=== PATIENT | female | born 1985 | race Caucasian/White ===

== ENCOUNTER → 2023-07-08 11:14 | Outpatient (REF) | payer OTHER, SELFPAY | LOC: REG 11:14 | PROVIDERS: ATTENDING PHYSICIAN Nurse Practitioner Family | DX: M79.675 Pain in left toe(s) (principal) | CPT/HCPCS: 73630 ==

== ENCOUNTER 2023-08-24 23:42 | Inpatient (IN) | payer OTHER, SELFPAY ==
[2023-08-24 17:16] VITALS: BMI 44.6
[2023-08-24 17:31] VITALS: BP 170/100
[2023-08-24 18:24] LABS: % Basophils 0.5 % (0-2); % Eosinophils 1.8 % (0-6); % Immature Granulocytes 0.3 % (0-0.5); % Lymphocytes 21.9 % (20.5-51.1); % Monocytes 6.8 % (1.7-9.3); % Neutrophils 68.7 % (42.2-75.2); Absolute Basophils 0.1 10^3/uL (0-0.2); Absolute Eosinophils 0.2 10^3/uL (0-0.7); Absolute Lymphocytes 2.3 10^3/uL (1.2-3.4); Absolute Monocytes 0.7 10^3/uL (0.1-0.6); Absolute Neutrophils 7.1 10^3/uL (1.4-6.5); Hematocrit 41.6 % (37.0-47.0); Hemoglobin 14.1 g/dL (12.0-16.0); Mean Corp Hgb Conc. 33.9 g/dL (33.0-37.0); Mean Corpuscular Hgb 27.2 pg (27.0-31.0); Mean Corpuscular Volume 80.3 fL (81.0-99.0); Mean Platelet Volume 9.1 fL (7.4-10.4); Nucleated Red Blood Cells % 0 %; Platelet Count 307 10^3/uL (130-400); Red Blood Cell Count 5.18 10^6/uL (4.20-5.40); Red Cell Dist. Width 13.7 % (11.5-14.5); White Blood Cell Count 10.4 10^3/uL (4.8-10.8)
[2023-08-24 18:35] LABS: HCG, Serum Qualitative Screen Negative
[2023-08-24 18:39] LABS: ALT (SGPT) 40 U/L (0-35); AST (SGOT) 35 U/L (14-36); Albumin 4.2 g/dl (3.5-5.0); Alkaline Phosphatase 106 U/L (38-126); Blood Urea Nitrogen 11 mg/dl (7-17); Calcium 9.5 mg/dl (8.4-10.2); Carbon Dioxide 26 mmol/L (22-30); Chloride 102 mmol/L (98-107); Glucose 91 mg/dl (70-99); Potassium 3.7 mmol/L (3.5-5.1); Sodium 138 mmol/L (135-145); Total Bilirubin 0.6 mg/dl (0.2-1.3); Total Protein 7.1 g/dl (6.3-8.2); eGFR > 60.00
[2023-08-24 19:41] VITALS: BP 150/85
[2023-08-24 20:00] VITALS: BP 146/73
--- NOTE | 2023-08-24 20:01 | ED.GENMED ---
History of Present Illness
General
Chief Complaint: Rectal Bleeding
Source: patient
Exam Limitations: none
Time Seen by Provider: 08/24/23 19:31
Nursing documentation reviewed up to this point in time: agreed with
Travel History
Have you had any contact with someone who has COVID-19?: No
Do you have any symptoms of coronavirus? Fever > 100 degrees, chills, cough, shortness of breath, sore throat, loss of taste or smell, muscle aches, or headache?: No
History of Present Illness
History of Present Illness:
Patient presents to ED secondary to greater than 20 episodes of bloody bowel movements since last night, associated with lower abdominal cramping sensation. Patient also reports nausea sensation without vomiting. Patient has had small meals today
without any vomiting episodes, but has been followed by multiple diarrhea episodes. Denies dizziness. Denies shortness of breath. Denies fever or chills. Denies recent illness. Denies recent change in medications or diet. Denies recent travel.
Patient does have history of IBS and states that she has been under heavy stress over the past 2 weeks, and is wondering whether or not it may have caused her IBS to flareup. There is family history of ulcerative colitis.
Past History
Past History
ED Past Medical History: Psychiatric (depr) and Other (PCOS, kidney stones)
ED Past Surgical History: Gynecological (Ovarian cyst removal, uterus polyp removal)
Social History
Tobacco: Non-smoker
Alcohol: None
Drug: None
Living: with family
Employment: Employed
Review of Systems
Review of Systems
Allergies reviewed?: Yes
All Other Systems: ROS reviewed and negative except as documented in HPI and ROS
Constitutional: Reports no symptoms; Denies fever or chills
Respiratory: Reports no symptoms
ABD/GI: Reports abdominal pain and nausea; Denies vomiting, diarrhea or bloody stools
Skin: Reports no symptoms
Neurological: Reports no symptoms; Denies dizzy or weakness
Phy Exam
Physical Exam
Physical Exam:
Physical Exam
General: mild distress, not acutely ill. afebrile
Head: nc/at. eomi
Neck: supple. normal range of motion.
Heart: s1/s2 regular rate and rhythm, no murmur. equal radial pulses.
Lungs: no acute respiratory distress. clear bilaterally
Abdomen: normal bowel sounds. not tender. no distention
Neuro: alert and oriented. no focal neurological deficits
Skin: no rash
Psychiatric: well kept. interactive and cooperative
Extremities: no edema. no calf tenderness.
Course
Orders/Labs/Results
Orders:
Orders
08/24/23 17:34
Test Result ONCE
08/24/23 18:18
Complete Blood Count/With Diff Urgent
Comprehensive Metabolic Panel Urgent
HCG, Serum Qualitative Screen Urgent
08/24/23 20:00
Stool Culture Urgent
DANETTE Source: Feces/Stool
Specimen Description:
0.9% Sodium Chloride 1000 ml [Nss] 1,000 ml IV BOLUS
08/24/23 20:06
CT Abd/pel W Iv And Oral Contr Urgent
Comment:
Reason For Exam: lower abdominal pain with bloody diarrhea
Iohexol [Omnipaque] See Protocol PO NOW STA
08/24/23 23:18
0.9% Sodium Chloride 500 ml [Nss] 500 ml IV BOLUS
Acetaminophen [Tylenol] 650 mg PO NOW STA
Ondansetron Injectable [Zofran] 4 mg IV NOW STA
08/24/23 23:29
Admit/Transfer Patient As Directed
Co-Sign Provider:
Level of Care: Inpatient admission
Assign to:: Medical/Surgical
Physician / Group: lexa self
Diagnosis: ulcreative colitis
Reason for Hospitalization: ulcerative colitis
Expected length of stay greater than two midnights?: Yes
ELOS- Estimated Length of Stay in days: 3
I certify the patient meets the requirements for IP care: Yes
08/24/23 23:30
Code Status As Directed
Resuscitation Status: Full Code
08/25/23 00:20
0.9% Sodium Chloride 1000 ml [Nss] 1,000 ml IV 80 mls/hr
Acetaminophen [Tylenol] 650 mg PO Q4HPRN PRN
Bisacodyl [Dulcolax] 10 mg RECTAL [id number] PRN
Docusate W/Senna [Senokot-S] 1 tablet PO BIDPRN PRN
Gabapentin [Neurontin] 300 mg PO DAILY PRN
Polyethylene Glycol Powder [Miralax] 17 grams PO DAILYPRN PRN
08/25/23 00:20
GASTROINTESTINAL CONSULT Routine
Consulting Provider: Emmanuel Euceda
Was physician already notified: Yes
Activity As Directed
Activity Level: As Tolerated
Pneumatic Compression Sleeves As Directed
Type: Knee high
Vital Signs As Directed
Frequency: Per unit guidelines
DX Deep Vein Thrombosis Video Routine
08/25/23 06:00
Complete Blood Count/No Diff IN AM
08/25/23 08:00
Escitalopram Oxalate [Lexapro] 20 mg PO DAILY
Famotidine [Pepcid] 20 mg PO DAILY
Gabapentin [Neurontin] 300 mg PO BID
Pseudoephedrine Extended Rel. [Sudafed 12 Hour (Extended Release)] 120 mg PO DAILY
08/26/23 06:00
Basic Metabolic Panel IN AM
Complete Blood Count/No Diff IN AM
08/27/23 06:00
Basic Metabolic Panel IN AM
Complete Blood Count/No Diff IN AM
08/28/23 06:00
Basic Metabolic Panel IN AM
Complete Blood Count/No Diff IN AM
08/29/23 06:00
Basic Metabolic Panel IN AM
Complete Blood Count/No Diff IN AM
Abnormal Lab Results
08/24/23
18:18
MCV 80.3 L fL
(81.0-99.0)
Absolute Neuts (auto) 7.1 H 10^3/uL
(1.4-6.5)
Absolute Monos (auto) 0.7 H 10^3/uL
(0.1-0.6)
ALT 40 H U/L
(0-35)
08/24/23 18:18
08/24/23 18:18
Vital Signs
Initial and Last Documented VS:
Initial Vital Signs
Temp Pulse Resp BP Pulse Ox
98.2 F 77 16 170/100 98
08/24/23 17:31 08/24/23 17:31 08/24/23 17:31 08/24/23 17:31 08/24/23 17:31
Last Documented Vital Signs
Temp Pulse Resp BP Pulse Ox
97.7 F 76 18 148/92 97
08/25/23 00:37 08/25/23 00:37 08/25/23 00:37 08/25/23 00:37 08/25/23 00:37
MDM/Problems Addressed
MDM/Problems Addressed:
Photos of BM visualized: bright red blood with small clots noted.
Pt with multiple episodes of bloody BM in ED during treatment.
H/H noted.
CT abd/pel report reviewed - awaiting to hear back from GI.
*Critical Care Note
Total Time (30-74mins, 75-104mins- exclusive of procedures): Not Applicable
ED Attending Note
-
Portions of this chart may have been created with voice recognition software.� Occasional wrong word or��sound alike� substitutions may have occurred due to the inherent limitations of voice recognition software.
Discharge Plan
Departure
Patient Disposition: Admit
Date of Disposition: 08/24/23
Time of Disposition: 23:27
Admit to: Med/Surg
Presentation/result/management discussed w/ accepting MD/DO: Hospitalist
Discharge Problem:
Colitis, Bloody diarrhea
Interventions
Interventions:
*Risk Screen - Suicide Last Done: 08/25/23 00:49
*General Assessment Last Done: 08/24/23 19:36
*Neglect/Abuse Screening Last Done: 08/24/23 19:36
ED- Fall Risk Assessment Last Done: 08/24/23 19:42
*ED COVID-19 Vaccine History Last Done: 08/24/23 17:31
*Nursing Disposition Last Done: 08/25/23 00:18
UG-Ghnyax-Luksfnqjre Assessment Last Done: 08/24/23 19:42
ED- Cardiac Assessment Last Done: 08/24/23 19:42
ED- Pulmonary Assessment Last Done: 08/24/23 19:42
Discharge Date and Time
Discharge Date/Time: 08/25/23 00:19
[2023-08-24] MEDS: OMNIPAQUE 50 ML PO (20:19)
[2023-08-24] MEDS: NSS 1000 IV (20:35)
[2023-08-24 21:00] VITALS: BP 117/91
[2023-08-24 22:00] VITALS: BP 129/81
[2023-08-24] MEDS: TYLENOL 650 MG PO (23:25)
[2023-08-24] MEDS: ZOFRAN 4 MG IV (23:25)
[2023-08-24] MEDS: NSS 500 IV (23:26)
--- NOTE | 2023-08-24 23:53 | HPS.HSE ---
Family Physician
-
Family Physician: TITA Correa
Chief Complaint
-
bloody diarrhea
History of Present Illness
38 y/o F hx of IBS, PCOS, presents to ER for 1 day history of bloody diarrhea. Patient reports symptoms began last evening. She has counted at least 20 separate episodes of blood BMs, associated with lower abdomen cramping. She reports + nausea, but
no vomiting. Today she has kept her meals small but still have several episodes of diarrhea. No other complaints. no recent med changes, sick contacts or travel. she reports increased level of stress last 2 weeks so thinks there may be a link there.
She does have a family history of UC (mother).
Medical History
Past Medical History
Past Medical History: Reports Other (Psychiatric (depr) and Other (PCOS, kidney stones))
Past Surgical History: Reports Other (Gynecological (Ovarian cyst removal, uterus polyp removal))
Social History
Tobacco: Non-smoker
Alcohol: None
Drug: None
Living: With Family
Employment: Employed
Family History
Family History: Other (Mother with UC)
Allergies / Home Medications
Allergies reflects when Allergies were last updated in [facility].
Home Medications with original date entered in [facility]
Allergy/Medication List:
Allergies
Allergy/AdvReac Type Severity Reaction Status Date / Time
levofloxacin [From Levaquin] Allergy Hives Verified 04/21/21 16:40
Sulfa (Sulfonamide Allergy Rash Verified 04/21/21 16:40
Antibiotics)
sulfamethoxazole Allergy Hives Verified 08/24/23 17:33
[From Bactrim]
trimethoprim [From Bactrim] Allergy Hives Verified 08/24/23 17:33
Home Medications
Medical Marijuana 5 mg PO HSPRN PRN sleep 08/24/23
cetirizine 5 mg-pseudoephedrine ER 120 mg tablet,extended release,12hr (Zyrtec-D) 1 tab PO DAILY 08/24/23
escitalopram oxalate 20 mg tablet 20 mg PO DAILY 08/24/23
famotidine 20 mg tablet 20 mg PO DAILY 08/24/23
gabapentin 300 mg capsule 300 mg PO BID 08/24/23
gabapentin 300 mg capsule 300 mg PO DAILY PRN nerve pain 08/24/23
ibuprofen 200 mg tablet (Advil) 600 mg PO BIDPRN PRN mild pain 08/24/23
Review of Systems
-
A 12 point ROS was completed and negative except as noted: Yes
Physical Exam
Vital Signs
Vital Signs
Temp Pulse Resp BP Pulse Ox
98.2 F 77 16 129/81 99
08/24/23 17:31 08/24/23 17:31 08/24/23 17:31 08/24/23 22:00 08/24/23 22:15
Physical Exam
General: No Apparent Distress
HEENT: NormoCephalic and Anicteric
Respiratory: No Wheezes
Cardiac: S1/S2 and Regular Rhythm
GI: Soft and Non Tender
Neuro: AO x 3
Hematologic/Lymphatic: No Lymphadenopathy
Psych: Calm
Laboratory Results
-
08/24/23 18:18
08/24/23 18:18
Laboratory Results
Total Bilirubin 0.6 mg/dl (0.2-1.3) 08/24/23 18:18
AST 35 U/L (14-36) 08/24/23 18:18
ALT 40 U/L (0-35) H 08/24/23 18:18
Alkaline Phosphatase 106 U/L (38-126) 08/24/23 18:18
Data Reviewed
-
CT Scan: Report Reviewed by me and Discussed with Patient
Lab Data: Labs Reviewed by me and Discussed with Patient
Impression/Plan
-
Assessment:
Bloody diarrhea
- CT: Acute uncomplicated colitis throughout the descending and proximal sigmoid colon, likely of infectious/inflammatory etiology.
- family history + for UC
- check ESR, CRP, fecal calprotectin
- stool studies
- NPO/IVF
- GI evaluation to consider steroids, sigmoidoscopy
- will start Zosyn empirically
DVT ppx: SCDs
Code: Full
[2023-08-24 23:54] VITALS: BP 113/46
--- NOTE | 2023-08-25 00:25 | PTCARENOTE ---
Pt admitted to room 2127 from ED, aaox3, no c/o pain. discomfort , n/v noted. IVF's infusing at 80ml/hr, no loose stools noted.
[2023-08-25 00:37] VITALS: BP 148/92; BMI 44.1
[2023-08-25] MEDS: NSS 1000 IV ×2 (00:42→12:30)
[2023-08-25] MEDS: AMBIEN 5 MG PO ×2 (01:00→21:38)
[2023-08-25] MEDS: ZOSYN 50 IV ×4 (01:21→20:32)
[2023-08-25 06:37] LABS: Hemoglobin 12.2 g/dL (12.0-16.0); Mean Corpuscular Hgb 27.1 pg (27.0-31.0); Mean Corpuscular Volume 82.2 fL (81.0-99.0); Mean Platelet Volume 9.6 fL (7.4-10.4); Platelet Count 248 10^3/uL (130-400); Red Cell Dist. Width 13.7 % (11.5-14.5); White Blood Cell Count 8.4 10^3/uL (4.8-10.8)
--- NOTE | 2023-08-25 06:50 | CON.GI ---
Addendum entered and electronically signed by Roslyn Daniels DO 08/25/23 11:23:
I saw and examined the patient.
The WAREHOUSE PULLER or PA's note was reviewed and I agree with the note.
Comment: Shellie is a 38-year-old female with past medical history of PCOS, IBS, nephrolithiasis, GERD, history of ovarian cyst, history of uterine polyp status post removal admitted with complaints of abdominal pain and bloody diarrhea, sudden onset
in nature, describes the pain as crampy. CAT scan on admission shows evidence of colitis in the descending and sigmoid colon. She is currently tolerating a liquid diet, has not had any bowel movements overnight, last bloody BM was yesterday around
11:00. Known family history of ulcerative colitis in her mother. She reports a normal colonoscopy at [facility] about 5 years ago, which was after having Campylobacter infection as well as recurrent IBS flares. I do not have a cough of
colonoscopy report, is unclear whether the terminal ileum was assessed or colonic biopsies were obtained to rule out microscopic or lymphocytic colitis. Her CRP is elevated otherwise labs are within normal limits. No stool studies obtained. She
was started on antibiotics for presumed infectious colitis.
At this time, the differential for her diarrhea remains broad, infectious versus inflammatory versus ischemic. If patient tolerates diet, okay for discharge from a GI perspective and will arrange for outpatient follow-up for flex sig vs.
colonoscopy. She follows with Dr. Joshi.
Original Note:
Consultation
-
Date/Time Consultation Requested: 08/25/2319
Date/Time Consultation Performed: 08/25/23929
Requesting Provider: TITA Barrera
Performing Provider: TITA Vazquez
Reason for Consultation: blood diarrhea
Medical History
Chief Complaint / HPI
Chief Complaint: crampy abdominal pain with blood diarrhea
History of Present Illness:
Pt is a 38yo with hx depression, PCOS, IBS, renal stones, GERD, ovarian cyst and uterine polyp removal and mother with history of ulcerative colitis presents to ER with lower crampy abdominal pain and blood diarrhea. On admission labs stable
with CT noted acute uncomplicated colitis in descending ans sigmoid.
Pt states she has hx IBS with flares every several months and prior campylobacter about 5-6 years ago with normal colonoscopy after infection completed at [facility]. She now admits to sudden onset of crampy abdominal pain with initially brown then
bloody frequent stools. After admission stools frequency has decreased. No stools studies have been sent. Pt does also admit to stress prior to admission. She denies any recent travel, abx, tainted foods or sick contacts.
Pt admits to nausea with symptoms but chronic GERD on Famotidine but recent flare with course of Omprazole. denies dysphagia, constipation or black stools.
Past Medical History
Past Medical History: GERD, Psychiatric (depression) and Other (kidney stones, PCOS, IBS, campylobacter infection 5-6 years ago)
Past Surgical History: Other (ovarian cyst removal, uterus polyp removal)
Social History
Tobacco: Non-Smoker
Alcohol: Occasional (1-2 drinks per month)
Drug: Marijuana (occasional use )
Living: Alone
Employment: Employed
Family History
Family History: Other (mother with ulcerative colitis, father with diverticulitis )
Allergies / Home Medications
Allergy/AdvReac Type Severity Reaction Status Date / Time
levofloxacin [From Levaquin] Allergy Hives Verified 04/21/21 16:40
Sulfa (Sulfonamide Allergy Rash Verified 04/21/21 16:40
Antibiotics)
sulfamethoxazole Allergy Hives Verified 08/24/23 17:33
[From Bactrim]
trimethoprim [From Bactrim] Allergy Hives Verified 08/24/23 17:33
�Medication �Instructions �Recorded
Medical Marijuana 5 mg PO HSPRN PRN sleep 08/24/23
cetirizine 5 mg-pseudoephedrine ER 1 tab PO DAILY 08/24/23
120 mg tablet,extended
release,12hr (Zyrtec-D)
escitalopram oxalate 20 mg tablet 20 mg PO DAILY 08/24/23
famotidine 20 mg tablet 20 mg PO DAILY 08/24/23
gabapentin 300 mg capsule 300 mg PO BID 08/24/23
gabapentin 300 mg capsule 300 mg PO DAILY PRN nerve pain 08/24/23
ibuprofen 200 mg tablet (Advil) 600 mg PO BIDPRN PRN mild pain 08/24/23
Review of Systems
-
History Source: Patient
Constitutional: Reports No Symptoms
EENT: Reports No Symptoms
Respiratory: Reports No Symptoms
Cardiac: Reports No Symptoms
Abdomen/GI: Reports Abdominal Pain, Nausea, Diarrhea and Bloody Stools
: Reports No Symptoms
Musculoskeletal: Reports Other (recent toe issue )
Skin: Reports No Symptoms
Neurological: Reports Weakness
Endocrine: Reports No Symptoms
Hematologic/Lymphatic: Reports Bleeding
Vital Signs
Temp Pulse Resp BP Pulse Ox
97.7 F 76 18 148/92 97
08/25/23 00:37 08/25/23 00:37 08/25/23 00:37 08/25/23 00:37 08/25/23 00:37
Physical Exam
Exam
General: Well Developed, Well Nourished and No Apparent Distress
HEENT: Normocephalic and Anicteric
Respiratory: Clear
Cardiac: Regular Rhythm
GI: Soft, Non Tender and Non Distended
Musculoskeletal: No Clubbing and No Cyanosis
Skin: Warm and Dry
Neuro: Awake, Alert and AO x 3
Psych: Calm
Results
WBC 8.4 10^3/uL (4.8-10.8) 08/25/23 05:37
Hgb 12.2 g/dL (12.0-16.0) 08/25/23 05:37
Hct 37.0 % (37.0-47.0) 08/25/23 05:37
MCV 82.2 fL (81.0-99.0) 08/25/23 05:37
Plt Count 248 10^3/uL (130-400) 08/25/23 05:37
Absolute Neuts (auto) 7.1 10^3/uL (1.4-6.5) H 08/24/23 18:18
Sodium 138 mmol/L (135-145) 08/24/23 18:18
Potassium 3.7 mmol/L (3.5-5.1) 08/24/23 18:18
Chloride 102 mmol/L (98-107) 08/24/23 18:18
Carbon Dioxide 26 mmol/L (22-30) 08/24/23 18:18
BUN 11 mg/dl (7-17) 08/24/23 18:18
Creatinine 0.6 mg/dL (0.6-1.0) 08/24/23 18:18
Calcium 9.5 mg/dl (8.4-10.2) 08/24/23 18:18
Total Bilirubin 0.6 mg/dl (0.2-1.3) 08/24/23 18:18
AST 35 U/L (14-36) 08/24/23 18:18
ALT 40 U/L (0-35) H 08/24/23 18:18
Alkaline Phosphatase 106 U/L (38-126) 08/24/23 18:18
Diagnostic Image Results:
08/23 CT A/p with IV and oral -1. Acute uncomplicated colitis throughout the descending and proximal sigmoid colon, likely of infectious/inflammatory etiology.
Prior GI Procedures:
EGD: 2019 [facility]- - Normal esophagus.
- Z-line regular, 35 cm from the incisors.
- Mild antral gastritis. Biopsied.
- Normal examined duodenum. Biopsied.
bx neg
Colonoscopy: 5-6 years ago [facility] recalls as normal
Assessment / Plan
-
Pt is a 38yo with hx depression, PCOS, IBS, renal stones, GERD, ovarian cyst and uterine polyp removal and mother with history of ulcerative colitis presents to ER with lower crampy abdominal pain and blood diarrhea. On admission labs stable
with CT noted acute uncomplicated colitis in descending ans sigmoid.
Pt states she has hx IBS with flares every several months and prior Campylobacter about 5-6 years ago with normal colonoscopy after infection completed at [facility]. She now admits to sudden onset of crampy abdominal pain with initially brown then
bloody frequent stools. After admission stools frequency has decreased. No stools studies have been sent. Pt does also admit to stress prior to admission. She denies any recent travel, abx, tainted foods or sick contacts. CRP 47.5, ESR 16.
-colitis with blood diarrhea on admission
-hx prior Campylobacter infection 5-6 years with normal colonoscopy after infection
-family hx ulcerative colitis
-hx IBS
-GERD
-increased stress
other med problems:
--PCOS
-ovarian cyst
-uterine polyp
-renal stones
PLAN:
Etiology of symptoms related to colitis -infectious with sudden onset vs less likely but in differential IBD, ischemic colitis
pt already with improvement
await stool studies to be sent
remains on abx
clear diet advance as tolerated to low residue diet
cont famotidine with hx GERD
message sent to office for GI follow up 4-6 weeks if not improving consider OP colon vs flex
-
-
Thank you for consultation and allowing me to participate in the patient's care. Please call the cardiology clinical consultant GI physician during the after hours with any questions or concerns.
[2023-08-25 07:06] LABS: ALT (SGPT) 50 U/L (0-35); AST (SGOT) 46 U/L (14-36); Albumin 3.3 g/dl (3.5-5.0); Alkaline Phosphatase 86 U/L (38-126); Blood Urea Nitrogen 7 mg/dl (7-17); Calcium 8.8 mg/dl (8.4-10.2); Carbon Dioxide 24 mmol/L (22-30); Chloride 106 mmol/L (98-107); Direct Bilirubin 0.3 mg/dl (0.0-0.4); Estimated Creatinine Clearance > 125 ml/min; Glucose 93 mg/dl (70-99); Potassium 3.7 mmol/L (3.5-5.1); Sodium 138 mmol/L (135-145); Total Bilirubin 0.6 mg/dl (0.2-1.3); Total Protein 5.7 g/dl (6.3-8.2); eGFR > 60.00
[2023-08-25 07:22] VITALS: BP 125/60
[2023-08-25 07:48] LABS: Erythrocyte Sed Rate 16 mm/hour (0-20)
[2023-08-25] MEDS: NEURONTIN 300 MG PO ×2 (08:48→20:32)
[2023-08-25] MEDS: PEPCID 20 MG PO (08:49)
[2023-08-25] MEDS: LEXAPRO 20 MG PO (08:49)
[2023-08-25] MEDS: TYLENOL 650 MG PO (08:50)
[2023-08-25] MEDS: SUDAFED 12 HOUR (EXTENDED RELEASE) 120 MG PO (08:52)
[2023-08-25] MEDS: ZYRTEC PO (09:01)
[2023-08-25 09:03] VITALS: BMI 44.1
--- NOTE | 2023-08-25 09:52 | W.PN.HOSP.TC ---
Today's Communication/Plan
-
see plan
F/U further GI recs
Assessment / Plan
Assessment / Plan
38 y/o F hx of IBS, PCOS, presents to ER for 1 day history of bloody diarrhea that beginning evening prior. Family hx UC.
CT A/P
IMPRESSION:
1. Acute uncomplicated colitis throughout the descending and proximal sigmoid colon, likely of infectious/inflammatory etiology.
Bloody diarrhea
- CT: Acute uncomplicated colitis throughout the descending and proximal sigmoid colon, likely of infectious/inflammatory etiology.
- family history + for UC
- check ESR, CRP, fecal calprotectin
- stool studies, not yet collected given no loose stools overnight
-IVF
-IV Zosyn
-advance to clears
DVT ppx: SCDs
Code: Full
Anticipated Discharge: 24 - 48 hours
Subjective/Interval History
-
Date of Service: August 25, 2023
no significant loose stools overnight
no fevers/chills
abdominal cramping pre loose stools, no pain now
Objective Data
-
Labs:
Laboratory Results
08/25/23
05:37
WBC 8.4
Hgb 12.2
Hct 37.0
Plt Count 248
Sodium 138
Potassium 3.7
Chloride 106
Carbon Dioxide 24
BUN 7
Creatinine 0.6
Glucose 93
Calcium 8.8
Total Bilirubin 0.6
AST 46 H
ALT 50 H
Alkaline Phosphatase 86
Vital Signs:
Vital Signs
Temp Pulse Resp BP Pulse Ox
98 F 77 20 125/60 98
08/25/23 07:22 08/25/23 07:22 08/25/23 07:22 08/25/23 07:22 08/25/23 07:22
I&O
08/24/23 08/25/23 08/26/23
06:59 06:59 06:59
Intake Total 610 / 610
Balance 610 / 610
Review of Systems
-
History Source: Patient
All other systems: Reviewed and negative
Physical Exam
-
General: No Apparent Distress
HEENT: PERRLA
Respiratory: Clear to Auscultation; Negative Wheezes
Cardiac: Regular Rhythm and S1/S2
GI: Soft and Nontender
Skin: Warm and Dry; Negative Rash
Neuro: AO x 3
Psych: Calm
Data Reviewed
-
Diagnostic Radiology: Report Reviewed by me
Labs: Labs Reviewed by me
[2023-08-25] MEDS: ZOFRAN 4 MG IV (14:24)
[2023-08-25 15:20] VITALS: BP 132/79
--- NOTE | 2023-08-25 16:42 | CM ---
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 Pharmacy is
[facility] on [address] in [place] and PCP is Dr. Jarrett Griffith at [facility]. Anticipate no needs at discharge.
[2023-08-25 23:27] VITALS: BP 120/74
[2023-08-26] MEDS: ZOSYN 50 IV ×2 (01:00→08:02)
[2023-08-26 06:00] LABS: Hematocrit 36.5 % (37.0-47.0); Hemoglobin 12.3 g/dL (12.0-16.0); Mean Corp Hgb Conc. 33.7 g/dL (33.0-37.0); Mean Corpuscular Hgb 27.3 pg (27.0-31.0); Mean Corpuscular Volume 80.9 fL (81.0-99.0); Mean Platelet Volume 9.6 fL (7.4-10.4); Platelet Count 260 10^3/uL (130-400); Red Blood Cell Count 4.51 10^6/uL (4.20-5.40); Red Cell Dist. Width 13.7 % (11.5-14.5); White Blood Cell Count 8.4 10^3/uL (4.8-10.8)
[2023-08-26 06:28] LABS: Blood Urea Nitrogen 8 mg/dl (7-17); Calcium 8.8 mg/dl (8.4-10.2); Carbon Dioxide 25 mmol/L (22-30); Chloride 105 mmol/L (98-107); Estimated Creatinine Clearance 124 ml/min; Glucose 95 mg/dl (70-99); Potassium 4.1 mmol/L (3.5-5.1); Sodium 137 mmol/L (135-145); eGFR > 60.00
[2023-08-26 07:10] VITALS: BP 115/69
[2023-08-26] MEDS: ZYRTEC 5 MG PO (08:00)
[2023-08-26] MEDS: PEPCID 20 MG PO (08:01)
[2023-08-26] MEDS: SUDAFED 12 HOUR (EXTENDED RELEASE) 120 MG PO (08:01)
[2023-08-26] MEDS: NEURONTIN 300 MG PO (08:01)
[2023-08-26] MEDS: LEXAPRO 20 MG PO (08:01)
--- NOTE | 2023-08-26 08:45 | PN.CDI ---
CDI
- -
CDI:
Physician Documentation Request
Admit Date: 08/24/23 23:42
Dear Doctor Octavia,
Patient admitted for colitis.
Clinical Indicators:
Height: 5' 2'
Weight:240 lbs
BMI:44.1
If possible, please provide an associated diagnosis related to the abnormal BMI, such as:
Obese
Overweight
Abnormal BMI is not significant
Other
BMI > or = to 40
Overweight
Obesity:
Due to excess calories
Drug induced
Due to other cause
Severe or morbid obesity:
With alveolar hypoventilation (Obesity hypoventilation syndrome)
Without alveolar hypoventilation
Use of terms such as suspected, likely, concern for, or probable (associated with a specific diagnosis that is being evaluated, monitored, or treated as if it exists) are acceptable and can be coded in the inpatient setting, when documented at the
time of discharge.
Thank you,
Yuko Horvath RN, BSN
CDI Specialist
Available via [place] text
Please use your independent medical judgment in providing your response.
--- NOTE | 2023-08-26 09:19 | W.PN.HOSP.TC ---
Addendum entered and electronically signed by Nancie Dudley MD 08/26/23 09:29:
obesity due to excess calories
-encourage weight loss
Original Note:
Today's Communication/Plan
-
Ok for DC today
Assessment / Plan
Assessment / Plan
38 y/o F hx of IBS, PCOS, presents to ER for 1 day history of bloody diarrhea that beginning evening prior. Family hx UC.
CT A/P
IMPRESSION:
1. Acute uncomplicated colitis throughout the descending and proximal sigmoid colon, likely of infectious/inflammatory etiology.
Bloody diarrhea
- CT: Acute uncomplicated colitis throughout the descending and proximal sigmoid colon, likely of infectious/inflammatory etiology.
- family history + for UC
- C. Diff negative; protozoa/Giardia neg; awaiting final stool culture
- with significant improvement in 24 hours, presentation seems infectious
- transition to oral antibiotics and DC on 4 more days
DVT ppx: SCDs
Code: Full
Anticipated Discharge: Today
Subjective/Interval History
-
Date of Service: August 26, 2023
some diarrhea last night after eating, non-bloody
overall frequency significantly decreased
able to tolerate regular diet
wants to go home
Objective Data
-
Labs:
Laboratory Results
08/26/23
05:15
WBC 8.4
Hgb 12.3
Hct 36.5 L
Plt Count 260
Sodium 137
Potassium 4.1
Chloride 105
Carbon Dioxide 25
BUN 8
Creatinine 0.7
Glucose 95
Calcium 8.8
Vital Signs:
Vital Signs
Temp Pulse Resp BP Pulse Ox
97.9 F 67 16 115/69 99
08/26/23 07:10 08/26/23 07:10 08/26/23 07:10 08/26/23 07:10 08/26/23 07:10
I&O
08/25/23 08/26/23 08/27/23
06:59 06:59 06:59
Intake Total 610 / 610 2290 / 2290
Balance 610 / 610 2290 / 2290
Review of Systems
-
History Source: Patient
All other systems: Reviewed and negative
Physical Exam
-
General: No Apparent Distress
HEENT: PERRLA
Respiratory: Clear to Auscultation; Negative Wheezes
Cardiac: Regular Rhythm and S1/S2
GI: Soft and Nontender
Skin: Warm and Dry; Negative Rash
Neuro: AO x 3
Psych: Calm
Data Reviewed
-
Diagnostic Radiology: Report Reviewed by me
Labs: Labs Reviewed by me
--- NOTE | 2023-08-26 09:28 | W.DS.TRANS ---
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
-
Discharge Instructions:
Discharge Diagnosis/Procedures infectious colitis
Diet Low Residue
Additional Diets Low Residue x 1 more week
Activity As tolerated
Driving Restrictions As prior to admission
Bathing Restrictions None
Instructions:
Stand-Alone Forms:
Changes to Home Medications: Yes
Discharge Medications:
DC Medications w/original date entered in [employer]
Medical Marijuana 5 mg PO HSPRN PRN sleep 08/24/23
cetirizine 5 mg-pseudoephedrine ER 120 mg tablet,extended release,12hr (Zyrtec-D) 1 tab PO DAILY Allergies 08/24/23
escitalopram oxalate 20 mg tablet 20 mg PO DAILY Depression 08/24/23
famotidine 20 mg tablet 20 mg PO DAILY Gastrointestinal Issue 08/24/23
gabapentin 300 mg capsule 300 mg PO BID Neurological Condition 08/24/23
gabapentin 300 mg capsule 300 mg PO DAILY PRN nerve pain 08/24/23
ibuprofen 200 mg tablet (Advil) 600 mg PO BIDPRN PRN mild pain 08/24/23
amoxicillin 875 mg-potassium clavulanate 125 mg tablet 1 tab PO BID #8 tabs 08/26/23
Home Medication Changes
addition of Augmentin
Pending Results: Yes
Additional Pending Results:
final stool culture
--- NOTE | 2023-08-26 10:52 | CM ---
Patient has been medically cleared for discharge to home with no additional skilled services. Patient has arranged for transport home.
--- NOTE | 2023-08-26 12:59 | W.DCSUMMARY ---
Discharge Summary
Discharge Data
Date of Admission: 08/24/23
Date of Discharge: 08/26/23
-
Pending Results: No
Hospital Course
Discharging Physician : Dr. Nancie Dudley
Disposition : Home
Primary care physician : Dr. Daren Tabares
Principal Discharge diagnosis : Infectious Colitis
Hospital Course :
Ms. Shellie Cuevas is a 38 yo woman with family hx UC presents to the ER with one day frequent bloody diarrhea. Triage vitals significant for hypertension. Labs with Hg 14.1. CT with acute uncomplicated colitis throughout descending and proximal
sigmoid colon. Patient was admitted to medicine with GI consulting. She was started on IV antibiotics. Over the next 24 hours symptoms significantly improved with less frequent diarrhea, no bleeding. C. Diff negative; protozoa/Giardia neg;
awaiting final stool culture. Patient able to advance diet and tolerate LRD prior to discharge. She is discharged on 4 more days antibiotics and will follow up outpatient with her PCP and GI where flex/sig versus colonoscopy will be discussed.
Time spent on discharge was 31 minutes.
Important imaging findings :
CT A/P
IMPRESSION:
1. Acute uncomplicated colitis throughout the descending and proximal sigmoid colon, likely of infectious/inflammatory etiology.
Procedure findings :
Discharge Plan
-
Patient Disposition: Home (Routine Discharge)
Discharge Diagnosis/Procedures: infectious colitis
Diet: Low Residue
Additional Diets: Low Residue x 1 more week
Activity: As tolerated
Driving Restrictions: As prior to admission
Bathing Restrictions: None
Referrals:
Emmanuel Euceda MD [Active] - in two to three weeks (scheduling for flex sig vs. colonoscopy)
Daren Tabares CRNP [Family Provider] - in less than 1 week
Prescriptions:
New
amoxicillin-pot clavulanate 875-125 mg Tablet
1 tab PO BID Qty: 8 0RF
Continued
cetirizine-pseudoephedrine [Zyrtec-D] 5-120 mg Tablet Extended Release 12 Hr
1 tab PO DAILY
famotidine 20 mg Tablet
20 mg PO DAILY
ibuprofen [Advil] 200 mg Tablet
600 mg PO BIDPRN PRN (Reason: mild pain)
gabapentin 300 mg Capsule
300 mg PO BID
gabapentin 300 mg Capsule
300 mg PO DAILY PRN (Reason: nerve pain)
escitalopram oxalate 20 mg Tablet
20 mg PO DAILY
Medical Marijuana 10 mg
5 mg PO HSPRN PRN (Reason: sleep)
Patient Comments:
08/24/2023, pt. uses medical marijuana gummies; each gummy is 10 mg and pt. takes 0.5 gummy HSPRN for sleep.
Discharge Orders:
Discharge Patient (As Directed); Ordered 08/26/23
Ordered By: Nancie Dudley
Discharge Date and Time
Discharge Date/Time: 08/26/23 11:23
Print Language: YORUBA
[2023-08-29 16:35] LABS: Calprotectin, Fecal 410 ug/g (<=49)
== END 2023-08-26 11:23 | disposition home or self-care (01) | DRG 392 ==
LOC: 2 NORTH 23:42
PROVIDERS: Emergency Medicine; Registered Nurse; ADMITTING PHYSICIAN Internal Medicine; ATTENDING PHYSICIAN Student in an Organized Health Care Education/Training Program; EMERGENCY PHYSICIAN Emergency Medicine; FAMILY PHYSICIAN Nurse Practitioner Family; OTHER PHYSICIAN Internal Medicine
PROC: 5A09357 Assistance with Respiratory Ventilation, Less than 24 Consecutive Hours, Continuous Positive Airway Pressure (ICD-10-PCS; 2023-08-25)
DX: A09 Infectious gastroenteritis and colitis, unspecified (principal); K62.5 Hemorrhage of anus and rectum; Z68.41 Body mass index [BMI] 40.0-44.9, adult; E28.2 Polycystic ovarian syndrome; F32.A Depression, unspecified; K21.9 Gastro-esophageal reflux disease without esophagitis; E66.09 Other obesity due to excess calories; I10 Essential (primary) hypertension; K58.9 Irritable bowel syndrome, unspecified; Z88.1 Allergy status to other antibiotic agents; Z88.2 Allergy status to sulfonamides; Z83.79 Family history of other diseases of the digestive system; Z87.442 Personal history of urinary calculi
CPT/HCPCS: 74177; 80048; 80053; 82248; 83993; 84703; 85025; 85027; 85652; 86140; 87045; 87046; 87324; 87328; 87329; 87427; 87449; 89055; 94660; 96361; 96374; 99285; Q9967

== ENCOUNTER 2024-05-09 06:14 | Day surgery (SDC) | payer OTHER, SELFPAY | END 2024-05-09 14:24 | disposition home or self-care (01) | LOC: GI 06:14 | PROVIDERS: ATTENDING PHYSICIAN Internal Medicine; FAMILY PHYSICIAN Nurse Practitioner Family | DX: K52.9 Noninfective gastroenteritis and colitis, unspecified (principal); D12.3 Benign neoplasm of transverse colon; K62.1 Rectal polyp; K63.89 Other specified diseases of intestine | CPT/HCPCS: 45385; 45380; 88305 ==